=== PATIENT | female | born 1980 | race Caucasian/White ===

== ENCOUNTER 2017-07-22 10:25 | Emergency (ER) | payer SELFPAY ==
--- NOTE | 2017-07-22 10:48 | ED ---
Complex/Multi-Sys Presentation - HPI Summary HPI Summary: 36F presents with fecal material exposure. 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 She does not know if she got any in her eyes or mouth. She took a shower immediately afterwards. She does not know if the patient has any infectious disease. She states could have been blood in the fecal material. The patient has no know medical conditions. - History Of Current Complaint Chief Complaint: EDExposureBodyFluid Time Seen by Provider: 07/22/17 10:35 - Allergies/Home Medications Allergies/Adverse Reactions: Allergies Allergy/AdvReac Type Severity Reaction Status Date / Time No Known Allergies Allergy Verified 07/22/17 10:31 PMH/Surg Hx/FS Hx/Imm Hx Endocrine/Hematology History: Denies: Hx Anticoagulant Therapy Cardiovascular History: Denies: Hx Myocardial Infarction Infectious Disease History: No Infectious Disease History: Denies: Traveled Outside the [place] in Last 30 Days - Family History Known Family History: Negative: Blood Disorder - Social History Alcohol Use: None Substance Use Type: Reports: None Smoking Status (MU): Never Smoked Tobacco Review of Systems Negative: Fever Negative: Chest Pain Negative: Shortness Of Breath All Other Systems Reviewed And Are Negative: Yes Physical Exam Triage Information Reviewed: Yes Vital Signs On Initial Exam: Initial Vitals Temp Pulse Resp BP Pulse Ox 97.2 F 76 16 125/68 95 07/22/17 10:29 07/22/17 10:29 07/22/17 10:29 07/22/17 10:29 07/22/17 10:29 Vital Signs Reviewed: Yes Appearance: Positive: Well-Appearing Skin: Positive: Warm, Dry Head/Face: Positive: Normal Head/Face Inspection Eyes: Positive: Normal, EOMI, ERNESTO, Conjunctiva Clear ENT: Positive: Normal ENT inspection, Pharynx normal, TMs normal Respiratory/Lung Sounds: Positive: Clear to Auscultation, Breath Sounds Present Cardiovascular: Positive: Normal, RRR Abdomen Description: Positive: Nontender, Soft Bowel Sounds: Positive: Present Musculoskeletal: Positive: Normal Neurological: Positive: Normal Psychiatric: Positive: Normal Diagnostics - Vital Signs Vital Signs Temp Pulse Resp BP Pulse Ox 07/22/17 10:29 97.2 F 76 16 125/68 95 - Laboratory Result Diagrams: 07/22/17 11:08 Lab Statement: Any lab studies that have been ordered have been reviewed, and results considered in the medical decision making process. Complex Multi-Symp Course/Dx Course Of Treatment: 36F presents with fecal material exposure. 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 She does not know if she got any in her eyes or mouth. She took a shower immediately afterwards. She does not know if the patient has any infectious disease. She states could have been blood in the fecal material. counseled on the risk of HIV transmission with blood in stool is low. obtained inform consent for HIV testing. discussed with dr cisneros and agrees that low risk. discussed PEP and pro vs cons. suggest that likely unnecessary in this case but patient wants the PEP. will give pep medication for a week and follow up with dr aquino. patient understand and agrees with plan. - Diagnoses Differential Diagnoses/HQI/PQRI: Other - HIV exposure, body fluid exposure Provider Diagnoses: Patient exposure to body fluids Discharge - Discharge Plan Condition: Good Disposition: HOME Patient Education Materials: Emtricitabine/Tenofovir (By mouth), Raltegravir ( By mouth), Postexposure Prophylaxis (ED) Referrals: [facility] [Outside] Rosemarie KING,Raymundo Horton [Medical Doctor] - Additional Instructions: Take truvada once a day Raltregraivir twice a day Zofran every 6 hours Follow up with dr Aquino within a week Return to ED if develop any new or worsening symptoms
[2017-07-22] MEDS ORDERED: Tetan/Diph/Pertus SYR(Tdap)* 0.5 ML SYR(BOOSTRIX) use SYR IM ONE (10:50)
[2017-07-22 11:33] LABS: Hematocrit 37 % (35-47); Hemoglobin 12.2 g/dl (12.0-16.0); Mean Corpuscular HGB Conc 33 g/dl (31-36); Mean Corpuscular Hemoglobin 29 pg (27-31); Mean Corpuscular Volume 88 fL (80-97); Mean Platelet Volume 10 um3 (7.4-10.4); Red Blood Count 4.19 10^6/ul (4.0-5.4); Red Cell Distribution Width 16 % (10.5-15); White Blood Count 5.8 10^3/ul (3.5-10.8)
[2017-07-22 11:49] LABS: ALT 9 U/L (7-52); AST 13 U/L (13-39); Albumin 4.5 g/dL (3.2-5.2); Alkaline Phosphatase 39 U/L (34-104); Anion Gap 5 mmol/L (2-11); BUN/Creatinine Ratio 14.9 (8-20); Blood Urea Nitrogen 11 mg/dL (6-24); CO2 Carbon Dioxide 27 mmol/L (22-32); Calcium 9.4 mg/dL (8.6-10.3); Chloride 108 mmol/L (101-111); EGFR African American 114.9 (>60); EGFR Non-African American 89.3 (>60); Globulin 2.6 g/dL (2-4); Glucose 84 mg/dL (70-100); Potassium 4.3 mmol/L (3.5-5.0); Sodium 140 mmol/L (133-145); Total Protein 7.1 g/dL (6.4-8.9)
[2017-07-22] MEDS ORDERED: Tenofovir/Emtricitabine(*) TAB PO ONE (11:50)
[2017-07-22] MEDS ORDERED: Raltegravir* 400 MG TAB PO ONE (11:50)
[2017-07-22] MEDS ORDERED: Ondansetron ODT TAB* 4 MG PO ONE (11:50)
[2017-07-22 12:58] VITALS: BP 116/78
[2017-07-23 12:52] LABS: Rapid HIV INT CONT QC Line Present
[2017-07-23 12:53] LABS: Rapid HIV Kit Lot# HO46007
[2017-07-23 12:56] LABS: Manual Entry Verification BM
== END 2017-07-22 12:57 | disposition home or self-care (01) ==
LOC: ED 10:25
DX: Z77.21 Contact with and (suspected) exposure to potentially hazardous body fluids (principal)
CPT/HCPCS: 36415; 80053; 84702; 85025; 86703; 86706; 86709; 86803; 87340; 90471; 90715; 99282; A9270-GY

== ENCOUNTER 2019-03-20 10:22 | Emergency (ER) | payer BC, OTHER ==
[2019-03-20] MEDS ORDERED: Ketorolac INJ* 30 MG/ML 1 ML VIAL IV PUSH ONE (12:19)
[2019-03-20] MEDS ORDERED: Metoclopramide IV* 5 MG/ML 2 ML VIAL IV ONE (12:19)
[2019-03-20] MEDS ORDERED: diPHENhydraMINE IV* 50 MG/ML 1 ml VIAL (BENADRYL) IV ONE (12:19)
[2019-03-20] MEDS ORDERED: NS 0.9% 1000 ML** 1,000 ML IV ONE ×2 (12:19→14:33)
--- NOTE | 2019-03-20 12:27 | ED ---
Headache - HPI Summary HPI Summary: This patient is a 38 year old F presenting to [facility] with a chief complaint of JASMINE since 03/15/19. She says the pain is an waxing and waning oppressive ache from her left shoulder to the left side of her head. Patient reports intermittent nausea (aggravated by eating and drinking), vomiting, and dizziness. Symptoms aggravated by light. Per triage, the patient rates the pain 7/10 in severity. Pt has PMHx of headaches but not with nausea. Pt went to Urgent care on 03/19/19, and was given shots for pain, and nausea, which alleviated her symptoms enough for her to sleep. But the pain and nausea returned today morning. - History Of Current Complaint Chief Complaint: EDNauseaVomitDiarrh Stated Complaint: VOMITING , HEADAHCE Time Seen by Provider: 03/20/19 11:33 Hx Obtained From: Patient Last Known Well Date: 03/15/19 Hx Last Menstrual Period: 2 weeks ago Onset/Duration: Gradual Onset, Started days ago, Still Present Timing: Intermittent, Lasting: Location of Headache: Other: - left side Aggravating Factor: Bright Lights Allevating Factors: Medication Associated Signs And Symptoms: Dizziness, Nausea, Vomiting - Allergies/Home Medications Allergies/Adverse Reactions: Allergies Allergy/AdvReac Type Severity Reaction Status Date / Time No Known Allergies Allergy Verified 07/22/17 10:31 PMH/Surg Hx/FS Hx/Imm Hx Endocrine/Hematology History: Denies: Hx Anticoagulant Therapy Cardiovascular History: Denies: Hx Myocardial Infarction Infectious Disease History: No Infectious Disease History: Denies: Traveled Outside the [place] in Last 30 Days - Family History Known Family History: Negative: Blood Disorder - Social History Occupation: Employed Full-time Alcohol Use: None Substance Use Type: Reports: None Hx Tobacco Use: Yes Smoking Status (MU): Heavy Every Day Tobacco Smoker Review of Systems Positive: Photophobia Positive: Vomiting, Nausea Neurological: Other - pos - dizziness Positive: Headache All Other Systems Reviewed And Are Negative: Yes Physical Exam - Summary Physical Exam Summary: Appearance: The patient is well-nourished in no acute distress and in no acute pain. Skin: The skin is warm and dry and skin color reflects adequate perfusion. HEENT: The head is normocephalic and atraumatic. The pupils are equal and reactive. The conjunctivae are clear and without drainage. Nares are patent and without drainage. Mouth reveals moist mucous membranes and the throat is without erythema and exudate. The external ears are intact. The ear canals are patent and without drainage. The tympanic membranes are intact. Neck: The neck is supple with full range of motion and non-tender. There are no carotid bruits. There is no neck vein distension. Respiratory: Chest is non-tender. Lungs are clear to auscultation and breath sounds are symmetrical and equal. Cardiovascular: Heart is regular rate and rhythm. There is no murmur or rub auscultated. There is no peripheral edema and pulses are symmetrical and equal. Abdomen: The abdomen is soft and non-tender. There are normal bowel sounds heard in all four quadrants and there is no organomegaly palpated. Musculoskeletal: There is no back tenderness noted. Extremities are non-tender with full range of motion. There is good capillary refill. There is no peripheral edema or calf tenderness elicited. Neurological: Patient is alert and oriented to person, place and time. The patient has symmetrical motor strength in all four extremities. Cranial nerves are grossly intact. Deep tendon reflexes are symmetrical and equal in all four extremities. Psychiatric: The patient has an appropriate affect and does not exhibit any anxiety or depression Triage Information Reviewed: Yes Vital Signs On Initial Exam: Initial Vitals Temp Pulse Resp BP Pulse Ox 97.8 F 114 18 109/68 98 03/20/19 10:26 03/20/19 10:26 03/20/19 10:26 03/20/19 10:26 03/20/19 10:26 Vital Signs Reviewed: Yes Diagnostics - Vital Signs Vital Signs Temp Pulse Resp BP Pulse Ox 03/20/19 10:26 97.8 F 114 18 109/68 98 - Laboratory Result Diagrams: 03/20/19 12:28 03/20/19 12:28 Lab Statement: Any lab studies that have been ordered have been reviewed, and results considered in the medical decision making process. Re-Evaluation - Re-Evaluation Second Eval Re-Evaluation Time: 17:16 Comment: Discussed plan of care with pt. Headache Course/Dx - Course Course Of Treatment: Ms. Riley presented complaining that presented complaining that she has had a left-sided occipital headache for 5 days. It started while she was at work and she thought it was related to tension. She was seen in an urgent care out of town last night and given some medication which helped for a while but did not take it away completely. She was nontoxic in appearance with stable vitals on arrival. She is tender on the left paracervical area and at the origin of her occipital nerve on the left. There is some spasm. She was given IV normal saline, ketorolac, diphenhydramine and metoclopramide with significant relief of her pain but not completely. I recommended that we do a lumbar puncture to rule out an infectious process and she was hesitant. She was then given another liter of normal saline and observed while being allowed to rest in a darkened room. She still wasn't completely improved but did not want a lumbar puncture at that time and I will discharge her to follow-up with her PCP. - Diagnoses Provider Diagnoses: Headache Discharge - Sign-Out/Discharge Documenting (check all that apply): Patient Departure - Discharge Patient Received Moderate/Deep Sedation with Procedure: No - Discharge Plan Condition: Stable Disposition: HOME Patient Education Materials: Acute Headache (ED) Referrals: [facility] [Outside] Additional Instructions: Follow up with Primary Care Provider within 2-3 days. RETURN TO THE ED FOR ANY NEW OR WORSENING SYMPTOMS. - Billing Disposition and Condition Condition: STABLE Disposition: Home - Attestation Statements Document Initiated by Scribe: Yes Documenting Scribe: Leisa Salvador Provider For Whom Mark is Documenting (Include Credential): Dr. Adrián Hagan MD Scribe Attestation: Leisa Burt scribed for Dr. Adrián Hagan MD on 03/20/19 at 1756. Scribe Documentation Reviewed: Yes Provider Attestation: The documentation as recorded by the Leisa alston accurately reflects the service I personally performed and the decisions made by me, Dr. Adrián Hagan MD Status of Scribe Document: Viewed
[2019-03-20 12:36] LABS: ABS Lymphocytes 1.5 10^3/ul (1.0-4.8); ABS Monocytes 0.3 10^3/ul (0-0.8); ABS Neutrophils 7.3 10^3/ul (1.5-7.7); Eosinophil % 0.3 %; Hematocrit 43 % (35-47); Hemoglobin 14.5 g/dL (12.0-16.0); Lymphocyte % 15.9 %; Mean Corpuscular HGB Conc 34 g/dL (31-36); Mean Corpuscular Hemoglobin 30 pg (27-31); Mean Corpuscular Volume 90 fL (80-97); Mean Platelet Volume 9.8 fL (7.4-10.4); Platelet Count 224 10^3/uL (150-450); Red Blood Count 4.76 10^6 /uL (3.70-4.87); Red Cell Distribution Width 13 % (10-15); White Blood Count 9.2 10^3/uL (3.5-10.8)
[2019-03-20 12:56] LABS: ALT 10 U/L (7-52); AST 16 U/L (13-39); Albumin 4.9 g/dL (3.2-5.2); Alkaline Phosphatase 35 U/L (34-104); Anion Gap 13 mmol/L (2-11); BUN/Creatinine Ratio 20.2 (8-20); Blood Urea Nitrogen 17 mg/dL (6-24); C Reactive Protein 5.64 mg/L (<8.01); CO2 Carbon Dioxide 19 mmol/L (22-32); Calcium 8.9 mg/dL (8.6-10.3); Chloride 106 mmol/L (101-111); EGFR African American 92.3 (>60); EGFR Non-African American 76.3 (>60); Globulin 2.4 g/dL (2-4); Potassium 4.5 mmol/L (3.5-5.0); Sodium 138 mmol/L (135-145); Total Protein 7.3 g/dL (6.4-8.9)
[2019-03-20 13:02] LABS: HCG Pregnancy < 0.60 mIU/mL
[2019-03-20 13:08] LABS: Glucose 49 mg/dL (70-100)
[2019-03-20] MEDS ORDERED: Dextrose 50% VIAL 50 ml IV ONE (13:09)
[2019-03-20 18:09] VITALS: BP 118/69
== END 2019-03-20 18:07 | disposition home or self-care (01) ==
LOC: ED 10:22
DX: R51 Headache (principal); F17.210 Nicotine dependence, cigarettes, uncomplicated
CPT/HCPCS: 36415; 80053; 84702; 85025; 86140; 96361; 96374; 96375; 99284; J1200; J1885; J2765